=== PATIENT | female | born 1930 | race Caucasian/White ===

== ENCOUNTER 2016-12-05 14:37 | Emergency (ER) | payer MEDICARE, BC ==
[2016-12-05 16:39] VITALS: BP 153/76
[2016-12-05] MEDS ORDERED: Sodium Chloride 0.9% 1,000 ML IV SCH (18:45)
--- NOTE | 2016-12-05 18:46 | EDM.PDOC ---
[id number]: SHORT OF BREATH,WEAKNESS Time Seen by Provider: 12/05/16 15:55 Source of Information: Reports: Patient, Family History Limitations: Reports: No Limitations - History of Present Illness INITIAL COMMENTS - FREE TEXT/NARRATIVE: pt is here fatiqued and feeling more sob with exercise intolerance. She has a history of arthritis and she has a history of frequent UTIs. Onset: Gradual Duration: Day(s): Associated Symptoms: Reports: Malaise, Weakness, Other ( poor exercise tolerance. ) - Related Data Allergies Allergy/AdvReac Type Severity Reaction Status Date / Time No Known Allergies Allergy Verified 12/05/16 16:10 Home Meds: Home Meds Acetaminophen [Tylenol] 650 mg PO Q8H 12/05/16 [History] Aspirin [Halfprin] 81 mg PO DAILY 12/05/16 [History] Calcium Carbonate/Vitamin D3 [Caltrate-600 with Vit D Tab] 1 each PO DAILY 12/05 [History] Cyanocobalamin (Vitamin B-12) [Vitamin B-12] 1,000 mcg PO DAILY 12/05/16 [ History] Darifenacin [Enablex] 15 mg PO DAILY 12/05/16 [History] Donepezil HCl [Aricept] 10 mg PO BEDTIME 12/05/16 [History] Escitalopram [Lexapro] 10 mg PO DAILY 12/05/16 [History] Folic Acid/Mv,Fe,Other Min [One Daily Complete] 1 each PO DAILY 12/05/16 [ History] Ibuprofen [Motrin] 400 mg PO BEDTIME 12/05/16 [History] Memantine HCl [Namenda] 5 mg PO BID 12/05/16 [History] [place]-3/DHA/Epa/Fish Oil [Fish Oil 1,000 mg Softgel] 1,000 mg PO DAILY 12/05/16 [History] Omeprazole Magnesium [Prilosec Otc] 20 mg PO DAILY 12/05/16 [History] Psyllium Husk [Metamucil] 0.8 gm PO BEDTIME 12/05/16 [History] atorvaSTATin [Lipitor] 5 mg PO BEDTIME 12/05/16 [History] metFORMIN [Glucophage] 500 mg PO DAILY 12/05/16 [History] Past Medical History HEENT History: Reports: Hard of Hearing, Impaired Vision Gastrointestinal History: Reports: GERD Genitourinary History: Reports: Urinary Incontinence, UTI, Recurrent 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: Musculoskeletal History: Reports: Fracture, Other (See Below) Other Musculoskeletal History: 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 Neurological History: Reports: Alzheimers Disease Psychiatric History: Reports: Other (See Below) Other Psychiatric History: lexapro for sleep disorder Endocrine/Metabolic History: Reports: Diabetes, Type II, Osteoporosis - Past Surgical History GI Surgical History: Reports: Appendectomy Female Surgical History: Reports: Hysterectomy Musculoskeletal Surgical History: Reports: Knee Replacement, Other (See Below) Other Musculoskeletal Surgeries/Procedures:: bilateral total knee replacement, left femur mingo Social & Family History - Tobacco Use Smoking Status *Q: Never Smoker - Caffeine Use Caffeine Use: Reports: None - Recreational Drug Use Recreational Drug Use: No ED ROS GENERAL - Review of Systems Review Of Systems: See Below Constitutional: Reports: Chills, Malaise HEENT: Reports: No Symptoms Respiratory: Reports: No Symptoms Cardiovascular: Reports: No Symptoms Endocrine: Reports: No Symptoms GI/Abdominal: Reports: No Symptoms : Reports: No Symptoms, Other ( history of frequent infections. ) Musculoskeletal: Reports: No Symptoms Skin: Reports: No Symptoms ED EXAM, GENERAL - Physical Exam Exam: See Below Free Text/Narrative:: pt has mild sob and fatique. Exam Limited By: No Limitations General Appearance: Alert, Mild Distress Ears: Normal TMs Nose: Normal Inspection Throat/Mouth: Normal Inspection Head: Atraumatic Neck: Normal Inspection Respiratory/Chest: No Respiratory Distress Cardiovascular: Regular Rate, Rhythm GI/Abdominal: Soft, Non-Tender (Female) Exam: Deferred Rectal (Female) Exam: Deferred Back Exam: Normal Inspection Extremities: Normal Inspection Neurological: Alert, Oriented, Normal Cognition Psychiatric: Anxious Course - Vital Signs Last Recorded V/S: Last Vital Signs Temp 36.4 C 12/05/16 16:37 Pulse 70 12/05/16 16:38 Resp 18 12/05/16 16:38 BP 153/76 H 12/05/16 16:38 Pulse Ox 92 L 12/05/16 16:38 - Orders/Labs/Meds Orders: Active Orders 24 hr Category Date Time Status EKG Documentation Completion [RC] ASDIRECTED Care 12/05/16 16:00 Active Chest 1V Frontal [CR] Stat Exams 12/05/16 17:44 Taken CULTURE URINE [RM] Stat Lab 12/05/16 19:00 Received EKG 12 Lead [EK] Stat Ther 12/05/16 16:00 Ordered Labs: Laboratory Tests 12/05/16 12/05/16 12/05/16 Range/Units 17:55 17:55 17:55 WBC 8.5 (4.5-11.0) K/uL RBC 4.15 (3.30-5.50) M/uL Hgb 12.0 (12.0-15.0) g/dL Hct 37.6 (36.0-48.0) % MCV 91 (80-98) fL MCH 29 (27-31) pg MCHC 32 (32-36) % Plt Count 282 (150-400) K/uL Neut % (Auto) 73 H (36-66) % Lymph % (Auto) 10 L (24-44) % Rock % (Auto) 13 H (2-6) % Eos % (Auto) 3 (2-4) % Baso % (Auto) 1 (0-1) % Sodium 137 L (140-148) mmol/L Potassium 4.5 (3.6-5.2) mmol/L Chloride 102 (100-108) mmol/L Carbon Dioxide 27 (21-32) mmol/L Anion Gap 12.5 (5.0-14.0) mmol/L BUN 20 H (7-18) mg/dL Creatinine 1.5 H (0.6-1.0) mg/dL Est Cr Clr Drug Dosing 21.07 mL/min Estimated GFR (MDRD) 33 L (>60) Glucose 200 H (74-106) mg/dL Calcium 9.1 (8.5-10.1) mg/dL Total Bilirubin 0.2 (0.2-1.0) mg/dL AST 21 (15-37) U/L ALT 23 (12-78) U/L Alkaline Phosphatase 76 (46-116) U/L Troponin I < 0.017 (0.000-0.056) ng/mL C-Reactive Protein (0.0-0.3) mg/dL Total Protein 8.0 (6.4-8.2) g/dL Albumin 3.0 L (3.4-5.0) g/dL Globulin 5.0 H (2.3-3.5) g/dL Albumin/Globulin Ratio 0.6 L (1.2-2.2) Urine Color Urine Appearance Urine pH (4.5-8.0) Ur Specific [place] (1.008-1.030) Urine Protein (NEGATIVE) mg/dL Urine Glucose (UA) (NEGATIVE) mg/dL Urine Ketones (NEGATIVE) mg/dL Urine Occult Blood (NEGATIVE) Urine Nitrite (NEGATIVE) Urine Bilirubin (NEGATIVE) Urine Urobilinogen (NORMAL) mg/dL Ur Leukocyte Esterase (NEGATIVE) Urine RBC (0-5) Urine WBC (0-5) Ur Epithelial Cells Amorphous Sediment Urine Bacteria Urine Mucus 12/05/16 12/05/16 Range/Units 18:05 18:09 WBC (4.5-11.0) K/uL RBC (3.30-5.50) M/uL Hgb (12.0-15.0) g/dL Hct (36.0-48.0) % MCV (80-98) fL MCH (27-31) pg MCHC (32-36) % Plt Count (150-400) K/uL Neut % (Auto) (36-66) % Lymph % (Auto) (24-44) % Rock % (Auto) (2-6) % Eos % (Auto) (2-4) % Baso % (Auto) (0-1) % Sodium (140-148) mmol/L Potassium (3.6-5.2) mmol/L Chloride (100-108) mmol/L Carbon Dioxide (21-32) mmol/L Anion Gap (5.0-14.0) mmol/L BUN (7-18) mg/dL Creatinine (0.6-1.0) mg/dL Est Cr Clr Drug Dosing mL/min Estimated GFR (MDRD) (>60) Glucose (74-106) mg/dL Calcium (8.5-10.1) mg/dL Total Bilirubin (0.2-1.0) mg/dL AST (15-37) U/L ALT (12-78) U/L Alkaline Phosphatase (46-116) U/L Troponin I (0.000-0.056) ng/mL C-Reactive Protein 7.45 H (0.0-0.3) mg/dL Total Protein (6.4-8.2) g/dL Albumin (3.4-5.0) g/dL Globulin (2.3-3.5) g/dL Albumin/Globulin Ratio (1.2-2.2) Urine Color Yellow Urine Appearance Cloudy Urine pH 6.0 (4.5-8.0) Ur Specific [place] 1.005 L (1.008-1.030) Urine Protein Negative (NEGATIVE) mg/dL Urine Glucose (UA) 50 H (NEGATIVE) mg/dL Urine Ketones Negative (NEGATIVE) mg/dL Urine Occult Blood Moderate (NEGATIVE) Urine Nitrite Negative (NEGATIVE) Urine Bilirubin Negative (NEGATIVE) Urine Urobilinogen Normal (NORMAL) mg/dL Ur Leukocyte Esterase Moderate (NEGATIVE) Urine RBC 5-10 H (0-5) Urine WBC 10-20 H (0-5) Ur Epithelial Cells Moderate Amorphous Sediment Few Urine Bacteria Moderate Urine Mucus Few Meds: Medications Discontinued Medications Generic Name Dose Route Start Last Admin Trade Name Freq PRN Reason Stop Dose Admin Sodium Chloride 1,000 mls @ 400 mls/hr 12/05/16 18:45 12/05/16 19:36 Normal Saline IV 400 mls/hr ASDIRECTED KIANA Administration Levofloxacin/Dextrose 500 mg/ 100 mls @ 100 mls/hr 12/05/16 18:50 12/05/16 19 :41 Premix IV 12/05/16 19:49 100 mls/hr ONETIME ONE Administration - Re-Assessments/Exams Free Text/Narrative Re-Assessment/Exam: 12/05/16 18:48 chest xray does not cathie acute. Her wbc is not elevated. Her b 12/05/16 18:49 creatnine is 1.5. Ekg looks normal. 12/05/16 18:52 pt was found to have a urine which looks quite infected. Departure - Departure Time of Disposition: 16:40 Disposition: Home, Self-Care 01 Condition: Fair Clinical Impression: UTI (urinary tract infection), Rheumatoid arthritis - Discharge Information Instructions: Urinary Tract Infection, Adult, [id number] Referrals: PCP,None [Primary Care Provider] - Forms: ED Department Discharge Care Plan Goals: push fluids . levoquin 500mg daily for 10 days. See primary care physian for followup. - My Orders Last 24 Hours: My Active Orders 12/05/16 16:00 EKG Documentation Completion [RC] ASDIRECTED EKG 12 Lead [EK] Stat 08/03/17 17:44 Chest 1V Frontal [CR] Stat 12/05/16 19:00 CULTURE URINE [RM] Stat - Assessment/Plan Last 24 Hours: My Active Orders 12/05/16 16:00 EKG Documentation Completion [RC] ASDIRECTED EKG 12 Lead [EK] Stat 12/05/16 17:44 Chest 1V Frontal [CR] Stat 12/05/16 19:00 CULTURE URINE [RM] Stat
[2016-12-05] MEDS ORDERED: Levofloxacin/Dextrose 5%-Water 500 MG in Premix Bag 1 BAG IV ONE (18:50)
--- NOTE | 2016-12-06 09:15 | CR ---
Heart size upper limits of normal. Elevated right hemidiaphragm. No focal consolidation. Pulmonary v asculature upper limits of normal. Difficult to exclude a pulmonary nodule right upper lobe at 5 mm. Compared to priors available otherwise recommend nonemergent noncontrast chest CT follow-up.
== END 2016-12-05 21:07 | disposition home or self-care (01) ==
LOC: JP.ED 14:37
DX: N39.0 Urinary tract infection, site not specified (principal); M06.9 Rheumatoid arthritis, unspecified; K21.9 Gastro-esophageal reflux disease without esophagitis; G30.0 Alzheimer's disease with early onset; E11.9 Type 2 diabetes mellitus without complications; M81.0 Age-related osteoporosis without current pathological fracture; Z87.440 Personal history of urinary (tract) infections; Z98.890 Other specified postprocedural states; Z96.651 Presence of right artificial knee joint; Z96.652 Presence of left artificial knee joint; Z90.710 Acquired absence of both cervix and uterus; Z79.84 Long term (current) use of oral hypoglycemic drugs; Z79.899 Other long term (current) drug therapy; Z79.82 Long term (current) use of aspirin
CPT/HCPCS: 36415; 71010; 80053; 81001; 84484; 85025; 86140; 87086; 87088; 87186; 93005; 96365; 99285; J1956; J7040; 93010; 99284

== ENCOUNTER 2017-01-24 18:28 | Emergency (ER) | payer MEDICARE, BC ==
[2017-01-24] MEDS ORDERED: Sodium Chloride 0.9% 10 ML Syringe FLUSH PRN ×2 (18:34)
--- NOTE | 2017-01-24 18:47 | EDM.PDOC ---
ED HPI GENERAL MEDICAL PROBLEM - General Stated Complaint: MEDICAL Time Seen by Provider: 01/24/17 18:32 Source of Information: Reports: Patient, EMS, RN Notes Reviewed History Limitations: Reports: No Limitations - History of Present Illness INITIAL COMMENTS - FREE TEXT/NARRATIVE: 86-year-old female presents emergency department today via EMS services, stroke alert was called in the field, patient was a little confused and disorientated so difficult to obtain history from her, the majority this is taken from EMS and family members, she normally uses a walker at home was ambulating across the floor sudden loss of balance and fell backward hit head and shoulders region. EMS services were called upon arrival smutter felt that she had a left -sided facial droop was confused having difficulty answering questions speech was slurred as well. She was initially taken to CAT scan upon arrival for head CT during the initial assessment she could speak in full sentences without difficulty orientated to person, complaining of shoulder pain bilaterally is able to smile without asymmetry with equal hand grasp bilaterally. Family states after she fell there was no loss of consciousness and she was able speak in full sentences without difficulty no facial droop was noted. The deficits appreciated by the smutter were in route to hospital but resolved upon arrival. Right Shoulder Pain Score (Numeric/FACES): 3 - Related Data Allergies Allergy/AdvReac Type Severity Reaction Status Date / Time No Known Allergies Allergy Verified 01/24/17 19:08 Home Meds: Home Meds Acetaminophen [Tylenol] 650 mg PO Q8H 12/05/16 [History] Aspirin [Halfprin] 81 mg PO DAILY 12/05/16 [History] Darifenacin [Enablex] 15 mg PO DAILY 12/05/16 [History] Donepezil HCl [Aricept] 10 mg PO BEDTIME 12/05/16 [History] Escitalopram [Lexapro] 10 mg PO DAILY 12/05/16 [History] Omeprazole Magnesium [Prilosec Otc] 20 mg PO DAILY 12/05/16 [History] Psyllium Husk [Metamucil] 0.8 gm PO BEDTIME 12/05/16 [History] atorvaSTATin [Lipitor] 5 mg PO BEDTIME 12/05/16 [History] glipiZIDE [Glucotrol XL] 0.5 tab PO DAILY 01/24/17 [History] Past Medical History HEENT History: Reports: Hard of Hearing, Impaired Vision Gastrointestinal History: Reports: GERD Genitourinary History: Reports: Urinary Incontinence, UTI, Recurrent 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: Musculoskeletal History: Reports: Fracture, Other (See Below) Other Musculoskeletal History: 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 Neurological History: Reports: Alzheimers Disease Psychiatric History: Reports: Other (See Below) Other Psychiatric History: lexapro for sleep disorder Endocrine/Metabolic History: Reports: Diabetes, Type II, Osteoporosis - Past Surgical History GI Surgical History: Reports: Appendectomy Female Surgical History: Reports: Hysterectomy Musculoskeletal Surgical History: Reports: Knee Replacement, Other (See Below) Other Musculoskeletal Surgeries/Procedures:: bilateral total knee replacement, left femur mingo Social & Family History - Tobacco Use Smoking Status *Q: Never Smoker - Caffeine Use Caffeine Use: Reports: None - Recreational Drug Use Recreational Drug Use: No ED ROS GENERAL - Review of Systems Review Of Systems: Unable To Obtain (Secondary to confused state) ED EXAM, NEURO - Physical Exam Exam: See Below Text/Narrative:: Cranial nerves II through XII grossly intact, power is 5 out 5 in upper and lower extremities, patellar reflex, biceps reflex +2 can do finger to nose without difficulty no dysdiadochokinesis no difficulty with rapid alternating movements no focal neurologic deficit Exam Limited By: No Limitations General Appearance: Alert, No Apparent Distress Eye Exam: Bilateral Eye: Normal Fundi Ears: Normal External Exam Nose: Normal Inspection Throat/Mouth: Normal Inspection, Normal Lips, Normal Teeth, Normal Gums, Normal Oropharynx, Normal Voice, No Airway Compromise Head Exam: Atraumatic, Normocephalic Neck: Normal Inspection, Supple, Non-Tender, Full Range of Motion Respiratory/Chest: No Respiratory Distress, Lungs Clear, Normal Breath Sounds, No Accessory Muscle Use Cardiovascular: Regular Rate, Rhythm, No Murmur GI/Abdominal: Soft, Non-Tender Neurological: Alert, CN II-XII Intact, No Motor/Sensory Deficits Back Exam: Normal Inspection, Full Range of Motion. No: CVA Tenderness (R), CVA Tenderness (L) Extremities: Normal Inspection, Non-Tender, No Pedal Edema Skin Exam: Warm, Dry Course - Vital Signs Last Recorded V/S: Last Vital Signs Temp 98.5 F 01/24/17 19:06 Pulse 80 01/24/17 20:11 Resp 16 01/24/17 20:11 BP 182/65 H 01/24/17 20:11 Pulse Ox 92 L 01/24/17 20:11 - Orders/Labs/Meds Orders: Active Orders 24 hr Category Date Time Status EKG Documentation Completion [RC] ASDIRECTED Care 01/24/17 18:35 Active Peripheral IV Care [RC] . DIRECTED Care 01/24/17 18:35 Active Head wo Cont [CT] Stat Exams 01/24/17 18:33 Taken Shoulder Comp Bi [CR] Stat Exams 01/24/17 18:42 Taken CULTURE URINE [RM] Urgent Lab 01/24/17 20:28 Uncollected Sodium Chloride 0.9% [Saline Flush] Med 01/24/17 18:34 Active 10 ml FLUSH ASDIRECTED PRN Sodium Chloride 0.9% [Saline Flush] Med 01/24/17 18:34 Active 10 ml FLUSH ASDIRECTED PRN Peripheral IV Insertion Adult [OM.PC] Urgent Oth 01/24/17 18:34 Ordered EKG 12 Lead [EK] Urgent Ther 01/24/17 18:34 Ordered Medication Orders Sodium Chloride (Saline Flush) 10 ml FLUSH ASDIRECTED PRN PRN Reason: Keep Vein Open Sodium Chloride (Saline Flush) 10 ml FLUSH ASDIRECTED PRN PRN Reason: Keep Vein Open Labs: Laboratory Tests 01/24/17 01/24/17 01/24/17 Range/Units 18:50 18:50 18:50 WBC 7.4 (4.5-11.0) K/uL RBC 4.14 (3.30-5.50) M/uL Hgb 12.2 (12.0-15.0) g/dL Hct 38.6 (36.0-48.0) % MCV 93 (80-98) fL MCH 30 (27-31) pg MCHC 32 (32-36) % Plt Count 232 (150-400) K/uL Neut % (Auto) 74 H (36-66) % Lymph % (Auto) 12 L (24-44) % [place] % (Auto) 11 H (2-6) % Eos % (Auto) 3 (2-4) % Baso % (Auto) 0 (0-1) % Sodium 138 L (140-148) mmol/L Potassium 3.5 L (3.6-5.2) mmol/L Chloride 103 (100-108) mmol/L Carbon Dioxide 24 (21-32) mmol/L Anion Gap 14.5 H (5.0-14.0) mmol/L BUN 21 H (7-18) mg/dL Creatinine 1.8 H (0.6-1.0) mg/dL Est Cr Clr Drug Dosing 18.40 mL/min Estimated GFR (MDRD) 27 L (>60) Glucose 133 H (74-106) mg/dL Calcium 8.7 (8.5-10.1) mg/dL Total Bilirubin 0.2 (0.2-1.0) mg/dL AST 25 (15-37) U/L ALT 25 (12-78) U/L Alkaline Phosphatase 71 (46-116) U/L Troponin I < 0.017 (0.000-0.056) ng/mL Total Protein 7.8 (6.4-8.2) g/dL Albumin 3.3 L (3.4-5.0) g/dL Globulin 4.5 H (2.3-3.5) g/dL Albumin/Globulin Ratio 0.7 L (1.2-2.2) Urine Color Urine Appearance Urine pH (4.5-8.0) Ur Specific [place] (1.008-1.030) Urine Protein (NEGATIVE) mg/dL Urine Glucose (UA) (NEGATIVE) mg/dL Urine Ketones (NEGATIVE) mg/dL Urine Occult Blood (NEGATIVE) Urine Nitrite (NEGATIVE) Urine Bilirubin (NEGATIVE) Urine Urobilinogen (NORMAL) mg/dL Ur Leukocyte Esterase (NEGATIVE) Urine RBC (0-5) Urine WBC (0-5) Ur Epithelial Cells Amorphous Sediment Urine Bacteria Urine Mucus Ethyl Alcohol < 3 mg/dL 01/24/17 Range/Units 20:11 WBC (4.5-11.0) K/uL RBC (3.30-5.50) M/uL Hgb (12.0-15.0) g/dL Hct (36.0-48.0) % MCV (80-98) fL MCH (27-31) pg MCHC (32-36) % Plt Count (150-400) K/uL Neut % (Auto) (36-66) % Lymph % (Auto) (24-44) % [place] % (Auto) (2-6) % Eos % (Auto) (2-4) % Baso % (Auto) (0-1) % Sodium (140-148) mmol/L Potassium (3.6-5.2) mmol/L Chloride (100-108) mmol/L Carbon Dioxide (21-32) mmol/L Anion Gap (5.0-14.0) mmol/L BUN (7-18) mg/dL Creatinine (0.6-1.0) mg/dL Est Cr Clr Drug Dosing mL/min Estimated GFR (MDRD) (>60) Glucose (74-106) mg/dL Calcium (8.5-10.1) mg/dL Total Bilirubin (0.2-1.0) mg/dL AST (15-37) U/L ALT (12-78) U/L Alkaline Phosphatase (46-116) U/L Troponin I (0.000-0.056) ng/mL Total Protein (6.4-8.2) g/dL Albumin (3.4-5.0) g/dL Globulin (2.3-3.5) g/dL Albumin/Globulin Ratio (1.2-2.2) Urine Color Yellow Urine Appearance Cloudy Urine pH 6.0 (4.5-8.0) Ur Specific [place] 1.010 (1.008-1.030) Urine Protein Negative (NEGATIVE) mg/dL Urine Glucose (UA) Normal (NEGATIVE) mg/dL Urine Ketones Negative (NEGATIVE) mg/dL Urine Occult Blood Trace (NEGATIVE) Urine Nitrite Negative (NEGATIVE) Urine Bilirubin Negative (NEGATIVE) Urine Urobilinogen Normal (NORMAL) mg/dL Ur Leukocyte Esterase Large (NEGATIVE) Urine RBC 0-5 (0-5) Urine WBC 20-30 H (0-5) Ur Epithelial Cells Few Amorphous Sediment Rare Urine Bacteria Few Urine Mucus Few Ethyl Alcohol mg/dL Meds: Medications Generic Name Dose Route Start Last Admin Trade Name Freq PRN Reason Stop Dose Admin Sodium Chloride 10 ml 01/24/17 18:34 Saline Flush FLUSH ASDIRECTED PRN Keep Vein Open Sodium Chloride 10 ml 01/24/17 18:34 Saline Flush FLUSH ASDIRECTED PRN Keep Vein Open Departure - Departure Time of Disposition: 20:38 Disposition: Home, Self-Care 01 Condition: Fair Clinical Impression: Syncope and collapse - Discharge Information Referrals: PCP,None [Primary Care Provider] - Additional Instructions: Resume your normal medications, please follow-up with your primary care provider upon return home - My Orders Last 24 Hours: My Active Orders 01/24/17 18:33 Head wo Cont [CT] Stat 01/24/17 18:34 Sodium Chloride 0.9% [Saline Flush] 10 ml FLUSH ASDIRECTED PRN Sodium Chloride 0.9% [Saline Flush] 10 ml FLUSH ASDIRECTED PRN Peripheral IV Insertion Adult [OM.PC] Urgent EKG 12 Lead [EK] Urgent 01/24/17 18:35 EKG Documentation Completion [RC] ASDIRECTED Peripheral IV Care [RC] . DIRECTED 01/24/17 18:42 Shoulder Comp Bi [CR] Stat 01/24/17 20:28 CULTURE URINE [RM] Urgent - Assessment/Plan Last 24 Hours: My Active Orders 01/24/17 18:33 Head wo Cont [CT] Stat 01/24/17 18:34 Sodium Chloride 0.9% [Saline Flush] 10 ml FLUSH ASDIRECTED PRN Sodium Chloride 0.9% [Saline Flush] 10 ml FLUSH ASDIRECTED PRN Peripheral IV Insertion Adult [OM.PC] Urgent EKG 12 Lead [EK] Urgent 01/24/17 18:35 EKG Documentation Completion [RC] ASDIRECTED Peripheral IV Care [RC] . 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 Etiology = unclear etiology Manifestations = none Location of injury = Home Lab values = sodium low at 138 consistent hyponatremia potassium low at 3.5 consistent hypokalemia creatinine elevated 1.8 consistent with chronic renal failure stage G for troponin was negative albumin low at 3.3 consistent hypoalbuminemia urinalysis reveals 20-30 WBCs consistent pyuria however few bacteria noted cultures pending EtOH is negative EKG demonstrates sinus rhythm no axis deviation no T wave inversions no atrial enlargement no ventricular enlargement no ST elevations or depressions PACs noted, CT scan of the head reveals diffuse atrophy, periventricular and subcortical white matter hypodensity consistent with small vessel ischemic change, 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 This note was dictated using [employer] voice recognition software please call with any questions.
[2017-01-24 20:12] VITALS: BP 182/65
--- NOTE | 2017-01-27 09:35 | CR ---
Shoulder Comp Bi INDICATION: fall, pain COMPARISON: No prior shoulder x-rays. Chest x-ray 12/05/2016 is available. FINDINGS: 6 views of both shoulders. Right shoulder: Band of sclerosis through the neck of the proximal humerus is again seen. A subacute impacted fracture not excluded. Overall, no change. If needed, CT right shoulder could be performed. Left shoulder: Old healed fracture left proximal humerus. Nothing acute seen. Discussed with Dr. Hernandez in the ED on 01/27/2017 at 0930 hours.
--- NOTE | 2017-01-27 11:24 | LETTER ---
01/27/2017 Dede Gleason [address] [place] [address] RE: DEDE GLEASON : 1930 Dear Dede: You recently were at the emergency room, and a shoulder x-ray was obtained because of the pain in the shoulder. It was read as no fracture. The radiologist has looked at this humeral area and feels that there could be a little hairline fracture sitting in the humeral neck. At this time, it is the recommendation of the radiologist that consideration be given to do a CAT scan of the shoulder. If you have questions regarding this feel, free to contact us. Sincerely, /[id number]
== END 2017-01-24 21:15 | disposition home or self-care (01) ==
LOC: JP.ED 18:28
DX: R55 Syncope and collapse (principal); E11.9 Type 2 diabetes mellitus without complications; Z79.82 Long term (current) use of aspirin; Z79.899 Other long term (current) drug therapy; Z87.440 Personal history of urinary (tract) infections
CPT/HCPCS: 36415; 70450; 73030; 80053; 81001; 84484; 85025; 87086; 87088; 87186; 93005; 93010; 99285; G0480; 99284

== ENCOUNTER 2017-12-19 12:24 | Emergency (ER) | payer MEDICARE, BC ==
[2017-12-19] MEDS ORDERED: Aspirin 81 MG Tab.Chew PO ONE (12:29)
--- NOTE | 2017-12-19 12:32 | EDM.PDOC ---
ED HPI GENERAL MEDICAL PROBLEM - General Chief Complaint: Chest Pain Stated Complaint: CHEST PAIN Time Seen by Provider: 12/19/17 12:28 Source of Information: Reports: Patient History Limitations: Reports: No Limitations - History of Present Illness INITIAL COMMENTS - FREE TEXT/NARRATIVE: 87-year-old female presents emergency department day complaint of chest pain, she states the chest pain started one hour prior she feels short of breath with a deep breath however no nausea vomiting no diaphoresis she has no heart history. - Related Data Allergies Allergy/AdvReac Type Severity Reaction Status Date / Time No Known Allergies Allergy Verified 12/19/17 12:40 Home Meds: Home Meds Acetaminophen [Tylenol] 650 mg PO Q8H 12/05/16 [History] Aspirin [Halfprin] 81 mg PO DAILY 12/05/16 [History] Darifenacin [Enablex] 15 mg PO DAILY 12/05/16 [History] Donepezil HCl [Aricept] 10 mg PO BEDTIME 12/05/16 [History] Escitalopram [Lexapro] 10 mg PO DAILY 12/05/16 [History] Omeprazole Magnesium [Prilosec Otc] 20 mg PO DAILY 12/05/16 [History] Psyllium Husk [Metamucil] 0.8 gm PO BEDTIME 12/05/16 [History] atorvaSTATin [Lipitor] 5 mg PO BEDTIME 12/05/16 [History] glipiZIDE [Glucotrol XL] 0.5 tab PO DAILY 01/24/17 [History] Metoprolol Tartrate [Lopressor] 12.5 mg PO Q12HR #30 tab 12/19/17 [Rx] Past Medical History HEENT History: Reports: Hard of Hearing, Impaired Vision Gastrointestinal History: Reports: GERD Genitourinary History: Reports: Urinary Incontinence, UTI, Recurrent Other Genitourinary History: 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-closely monitored [employer]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: Musculoskeletal History: Reports: Fracture, Other (See Below) Other Musculoskeletal History: 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 Neurological History: Reports: Alzheimers Disease Psychiatric History: Reports: Other (See Below) Other Psychiatric History: lexapro for sleep disorder Endocrine/Metabolic History: Reports: Diabetes, Type II, Osteoporosis Hematologic History: Reports: Iron Deficiency - Past Surgical History GI Surgical History: Reports: Appendectomy Female Surgical History: Reports: Hysterectomy Musculoskeletal Surgical History: Reports: Knee Replacement, Other (See Below) Other Musculoskeletal Surgeries/Procedures:: bilateral total knee replacement, left femur mingo Social & Family History - Caffeine Use Caffeine Use: Reports: None ED ROS GENERAL - Review of Systems Review Of Systems: See Below Constitutional: Reports: No Symptoms. Denies: Diaphoresis HEENT: Reports: No Symptoms Respiratory: Denies: Shortness of Breath Cardiovascular: Reports: Chest Pain GI/Abdominal: Denies: Nausea, Vomiting Musculoskeletal: Reports: No Symptoms ED EXAM, GENERAL - Physical Exam Exam: See Below Exam Limited By: No Limitations General Appearance: Alert, WD/WN, No Apparent Distress Head: Atraumatic, Normocephalic Neck: Normal Inspection, Supple, Non-Tender, Full Range of Motion Respiratory/Chest: No Respiratory Distress, Lungs Clear, Normal Breath Sounds, No Accessory Muscle Use Cardiovascular: No Murmur, Tachycardia GI/Abdominal: Soft, Non-Tender Course - Vital Signs Last Recorded V/S: Last Vital Signs Temp 98.2 F 12/19/17 12:30 Pulse 94 12/19/17 14:01 Resp 12 12/19/17 14:01 BP 130/71 12/19/17 14:01 Pulse Ox 94 L 12/19/17 14:01 - Orders/Labs/Meds Orders: Active Orders 24 hr Category Date Time Status Cardiac Monitoring [RC] .As Directed Care 12/19/17 12:29 Active EKG Documentation Completion [RC] ASDIRECTED Care 12/19/17 12:30 Active EKG Documentation Completion [RC] ASDIRECTED Care 12/19/17 13:43 Active Peripheral IV Care [RC] . DIRECTED Care 12/19/17 12:34 Active Chest 1V Frontal [CR] Stat Exams 12/19/17 12:30 Taken Nitroglycerin [Nitrostat] Med 12/19/17 13:13 Active 0.4 mg SL Q5M PRN Sodium Chloride 0.9% [Normal Saline] 1,000 ml Med 12/19/17 12:45 Active IV ASDIRECTED Sodium Chloride 0.9% [Saline Flush] Med 12/19/17 12:34 Active 10 ml FLUSH ASDIRECTED PRN Peripheral IV Insertion Adult [OM.PC] Urgent Oth 12/19/17 12:34 Ordered EKG 12 Lead [EK] Stat Ther 12/19/17 12:30 Ordered EKG 12 Lead [EK] Stat Ther 12/19/17 13:43 Ordered Medication Orders Sodium Chloride (Normal Saline) 1,000 mls @ 125 mls/hr IV ASDIRECTED KIANA Last Admin: 12/19/17 13:11 Dose: 125 mls/hr Nitroglycerin (Nitrostat) 0.4 mg SL Q5M PRN PRN Reason: Chest Pain Sodium Chloride (Saline Flush) 10 ml FLUSH ASDIRECTED PRN PRN Reason: Keep Vein Open Last Admin: 12/19/17 13:12 Dose: 10 ml Labs: Laboratory Tests 12/19/17 12/19/17 Range/Units 12:45 12:45 WBC 6.1 (4.5-11.0) K/uL RBC 4.40 (3.30-5.50) M/uL Hgb 13.2 (12.0-15.0) g/dL Hct 42.1 (36.0-48.0) % MCV 96 (80-98) fL MCH 30 (27-31) pg MCHC 31 L (32-36) % Plt Count 214 (150-400) K/uL Neut % (Auto) 67 H (36-66) % Lymph % (Auto) 17 L (24-44) % [place] % (Auto) 12 H (2-6) % Eos % (Auto) 3 (2-4) % Baso % (Auto) 0 (0-1) % Sodium 137 L (140-148) mmol/L Potassium 4.1 (3.6-5.2) mmol/L Chloride 101 (100-108) mmol/L Carbon Dioxide 25 (21-32) mmol/L Anion Gap 15.1 H (5.0-14.0) mmol/L BUN 21 H (7-18) mg/dL Creatinine 1.3 H (0.6-1.0) mg/dL Est Cr Clr Drug Dosing 25.02 mL/min Estimated GFR (MDRD) 39 L (>60) Glucose 275 H (74-106) mg/dL Calcium 9.0 (8.5-10.1) mg/dL Total Bilirubin 0.3 (0.2-1.0) mg/dL AST 32 (15-37) U/L ALT 40 (12-78) U/L Alkaline Phosphatase 87 (46-116) U/L CK-MB (CK-2) 3.1 (0-3.6) mg/mL Troponin I < 0.017 (0.000-0.056) ng/mL Total Protein 7.5 (6.4-8.2) g/dL Albumin 3.4 (3.4-5.0) g/dL Globulin 4.1 H (2.3-3.5) g/dL Albumin/Globulin Ratio 0.8 L (1.2-2.2) Meds: Medications Generic Name Dose Route Start Last Admin Trade Name Freq PRN Reason Stop Dose Admin Sodium Chloride 1,000 mls @ 125 mls/hr 12/19/17 12:45 12/19/17 13:11 Normal Saline IV 125 mls/hr ASDIRECTED KIANA Administration Nitroglycerin 0.4 mg 12/19/17 13:13 Nitrostat SL Q5M PRN Chest Pain Sodium Chloride 10 ml 12/19/17 12:34 12/19/17 13:12 Saline Flush FLUSH 10 ml ASDIRECTED PRN Administration Keep Vein Open Discontinued Medications Generic Name Dose Route Start Last Admin Trade Name Freq PRN Reason Stop Dose Admin Aspirin 324 mg 12/19/17 12:29 12/19/17 13:06 Aspirin PO 12/19/17 12:30 324 mg ONETIME ONE Administration Diltiazem HCl 20 mg 12/19/17 12:34 12/19/17 13:07 Diltiazem IVPUSH 12/19/17 12:35 20 mg ONETIME ONE Administration Departure - Departure Time of Disposition: 14:23 Disposition: Home, Self-Care 01 Condition: Fair Clinical Impression: Atrial fibrillation with rapid ventricular response Prescriptions: Metoprolol Tartrate [Lopressor] 12.5 mg PO Q12HR #30 tab Referrals: PCP,None [Primary Care Provider] - Forms: ED Department Discharge Additional Instructions: Start metoprolol half tablet today and then every 12 hours please follow-up with your primary care provider in your [employer] upon return home, call return to the emergency department worsening of symptoms - My Orders Last 24 Hours: My Active Orders 12/19/17 12:29 Cardiac Monitoring [RC] .As Directed 12/19/17 12:30 EKG Documentation Completion [RC] ASDIRECTED Chest 1V Frontal [CR] Stat EKG 12 Lead [EK] Stat 12/19/17 12:34 Peripheral IV Care [RC] . DIRECTED Sodium Chloride 0.9% [Saline Flush] 10 ml FLUSH ASDIRECTED PRN Peripheral IV Insertion Adult [OM.PC] Urgent 12/19/17 12:45 Sodium Chloride 0.9% [Normal Saline] 1,000 ml IV ASDIRECTED 12/19/17 13:13 Nitroglycerin [Nitrostat] 0.4 mg SL Q5M PRN 12/19/17 13:43 EKG Documentation Completion [RC] ASDIRECTED EKG 12 Lead [EK] Stat - Assessment/Plan Last 24 Hours: My Active Orders 12/19/17 12:29 Cardiac Monitoring [RC] .As Directed 12/19/17 12:30 EKG Documentation Completion [RC] ASDIRECTED Chest 1V Frontal [CR] Stat EKG 12 Lead [EK] Stat 12/19/17 12:34 Peripheral IV Care [RC] . DIRECTED Sodium Chloride 0.9% [Saline Flush] 10 ml FLUSH ASDIRECTED PRN Peripheral IV Insertion Adult [OM.PC] Urgent 12/19/17 12:45 Sodium Chloride 0.9% [Normal Saline] 1,000 ml IV ASDIRECTED 12/19/17 13:13 Nitroglycerin [Nitrostat] 0.4 mg SL Q5M PRN 12/19/17 13:43 EKG Documentation Completion [RC] ASDIRECTED EKG 12 Lead [EK] Stat Plan: Assessment Acuity = acute Site and laterality = atrial fibrillation with rapid ventricular response complicated patient with known history of chronic renal disease Etiology = unclear etiology Manifestations = none symptoms resolved status post chemical conversion Location of injury = Home Lab values = CBC unremarkable creatinine elevated at 1.3 consistent with chronic renal failure stage G IIIB, troponin was negative initial EKG demonstrates a defibrillation around [address] depression probably related to rate, postconversion EKG demonstrates a sinus rhythm [address] elevations or depressions, chest x-ray I did review films myself I cannot appreciate any acute process, the official read from radiology is pending Plan She was given Cardizem 20 mg which converted her to sinus rhythm is remained in this rhythm for at least a couple of hours I discussed with her rate control and anticoagulation as her chads score is between 4 puts her at risk for cerebrovascular accident, however she does have a significant fall risk and history. Therefore elected to treat her with the rate control medication metoprolol low-dose 12.5 mg by mouth twice a day hold off on any anticoagulation at this time until she can return home and follow up with her primary care provider in her [employer] for further evaluation This note was dictated using [employer] voice recognition software please call with any questions on syntax or grammar.
[2017-12-19] MEDS ORDERED: Diltiazem 25 MG/5 ML SDV IVPUSH ONE (12:34)
[2017-12-19] MEDS ORDERED: Sodium Chloride 0.9% 10 ML Syringe FLUSH PRN (12:34)
[2017-12-19] MEDS ORDERED: Sodium Chloride 0.9% 1,000 ML IV SCH (12:45)
[2017-12-19] MEDS ORDERED: Nitroglycerin 0.4 MG Tab.SL SL PRN (13:13)
[2017-12-19 14:02] VITALS: BP 130/71
--- NOTE | 2017-12-22 09:22 | CR ---
CHEST: Portable CLINICAL HISTORY:Chest pain COMPARISON:2017 FINDINGS: There is some mild chronic elevation of the right hemidiaphragm. Heart and pulmonary vascu larity appear normal. No infiltrates are seen. There is some deformity of the proximal left humerus f rom healed fracture. Previously seen right upper lung nodular density is not identified on current ex am IMPRESSION: No acute cardiopulmonary process or significant change from prior study. Previous left humeral fracture
== END 2017-12-19 14:55 | disposition home or self-care (01) ==
LOC: JP.ED 12:24
DX: I48.91 Unspecified atrial fibrillation (principal); E11.22 Type 2 diabetes mellitus with diabetic chronic 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; N18.9 Chronic 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, unspecified; Z79.82 Long term (current) use of aspirin; Z79.899 Other long term (current) drug therapy
CPT/HCPCS: 36415; 71045; 80053; 82553; 84484; 85025; 93005; 96361; 96374; 99285; A9270; J3490; J7030; J7050

== ENCOUNTER 2020-11-16 07:47 | Emergency (ER) | payer MEDICARE, BC ==
--- NOTE | 2020-11-16 08:10 | EDM.PDOC ---
ED HPI GENERAL MEDICAL PROBLEM - General Chief Complaint: Chest Pain Stated Complaint: MED[facility] Time Seen by Provider: 11/16/20 07:51 Source of Information: Reports: Patient, Family, RN Notes Reviewed History Limitations: Reports: No Limitations - History of Present Illness INITIAL COMMENTS - FREE TEXT/NARRATIVE: 89-year-old female presents emergency department day complaint of chest pain, she states the chest pain started last night went to bed awoke this morning still having chest pain she rates it 5 out of 10 did arrive by EMS provided baby aspirin did give 1 spray of nitro brought the pain down from a 5-3. She states that it feels like it is more in the center of her chest has had some nausea but she is currently being treated for urinary tract infection had some nausea with that as well. Does not feel short of breath but it hurts when she takes a deep breath no diaphoresis only cardiac history is paroxysmal atrial fibrillation a couple years ago. Middle Chest Pain Score (Numeric/FACES): 3 - Related Data Allergies Allergy/AdvReac Type Severity Reaction Status Date / Time No Known Allergies Allergy Verified 11/16/20 07:52 Home Meds: Home Meds Acetaminophen [Tylenol] 650 mg PO Q8H 12/05/16 [History] Aspirin [Halfprin] 81 mg PO DAILY 12/05/16 [History] Darifenacin [Enablex] 15 mg PO DAILY 12/05/16 [History] Donepezil HCl [Aricept] 10 mg PO BEDTIME 12/05/16 [History] Escitalopram [Lexapro] 10 mg PO DAILY 12/05/16 [History] Omeprazole Magnesium [Prilosec Otc] 20 mg PO DAILY 12/05/16 [History] Psyllium Husk [Metamucil] 0.8 gm PO BEDTIME 12/05/16 [History] atorvaSTATin [Lipitor] 5 mg PO BEDTIME 12/05/16 [History] glipiZIDE [Glucotrol XL] 0.5 tab PO DAILY 01/24/17 [History] Metoprolol Tartrate [Lopressor] 12.5 mg PO Q12HR #30 tab 12/19/17 [Rx] Past Medical History HEENT History: Reports: Hard of Hearing, Impaired Vision Cardiovascular History: Reports: Afib (Paroxysmal), Hypertension Gastrointestinal History: Reports: GERD Genitourinary History: Reports: Urinary Incontinence, UTI, Recurrent Other Genitourinary History: 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: Musculoskeletal History: Reports: Fracture, Other (See Below) Other Musculoskeletal History: 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 Neurological History: Reports: Alzheimers Disease Psychiatric History: Reports: Other (See Below) Other Psychiatric History: lexapro for sleep disorder Endocrine/Metabolic History: Reports: Diabetes, Type II, Osteoporosis Hematologic History: Reports: Iron Deficiency - Past Surgical History Head Surgeries/Procedures: Reports: None Cardiovascular Surgical History: Reports: None GI Surgical History: Reports: Appendectomy Female Surgical History: Reports: Hysterectomy Neurological Surgical History: Reports: None Musculoskeletal Surgical History: Reports: Knee Replacement, Other (See Below) Other Musculoskeletal Surgeries/Procedures:: bilateral total knee replacement, left femur mingo Dermatological Surgical History: Reports: None Social & Family History - Tobacco Use Tobacco Use Status *Q: Never Tobacco User - Caffeine Use Caffeine Use: Reports: None - Recreational Drug Use Recreational Drug Use: No ED ROS GENERAL - Review of Systems Review Of Systems: See Below Constitutional: Reports: No Symptoms HEENT: Reports: No Symptoms Respiratory: Reports: No Symptoms Cardiovascular: Reports: Chest Pain GI/Abdominal: Reports: Nausea ED EXAM, GENERAL - Physical Exam Exam: See Below Exam Limited By: No Limitations General Appearance: Alert, WD/WN, No Apparent Distress Respiratory/Chest: No Respiratory Distress, Lungs Clear, Normal Breath Sounds, No Accessory Muscle Use, Other (Tender to palpation center of the chest) Cardiovascular: Regular Rate, Rhythm, No Murmur GI/Abdominal: Soft, Non-Tender Extremities: No Pedal Edema Course - Vital Signs Last Recorded V/S: Last Vital Signs Temp 98 F 11/16/20 07:52 Pulse 80 11/16/20 08:47 Resp 16 11/16/20 09:46 BP 134/50 L 11/16/20 09:46 Pulse Ox 94 L 11/16/20 09:46 - Orders/Labs/Meds Orders: Active Orders 24 hr Category Date Time Status Cardiac Monitoring [RC] .As Directed Care 11/16/20 08:15 Active Labs: Laboratory Tests 11/16/20 11/16/20 Range/Units 08:35 08:35 WBC 10.6 (4.5-11.0) K/uL RBC 4.54 (3.30-5.50) M/uL Hgb 13.9 (12.0-15.0) g/dL Hct 44.8 (36.0-48.0) % MCV 99 H (80-98) fL MCH 31 (27-31) pg MCHC 31 L (32-36) % Plt Count 212 (150-400) K/uL Neut % (Auto) 77.9 H (36-66) % Lymph % (Auto) 10.8 L (24-44) % [place] % (Auto) 9.9 H (2-6) % Eos % (Auto) 1.2 L (2-4) % Baso % (Auto) 0.2 (0-1) % Sodium 141 (140-148) mmol/L Potassium 3.8 (3.6-5.2) mmol/L Chloride 104 (100-108) mmol/L Carbon Dioxide 24 (21-32) mmol/L Anion Gap 12.6 (5.0-14.0) mmol/L BUN 16 (7-18) mg/dL Creatinine 1.1 H (0.6-1.0) mg/dL Est Cr Clr Drug Dosing 28.50 mL/min Estimated GFR (MDRD) 47 L (>60) Glucose 148 H (74-106) mg/dL Calcium 8.7 (8.5-10.1) mg/dL Total Bilirubin 0.4 (0.2-1.0) mg/dL AST 17 (15-37) U/L ALT 15 (12-78) U/L Alkaline Phosphatase 82 (46-116) U/L Troponin I < 0.017 (0.000-0.056) ng/mL Total Protein 7.4 (6.4-8.2) g/dL Albumin 3.3 L (3.4-5.0) g/dL Globulin 4.1 H (2.3-3.5) g/dL Albumin/Globulin Ratio 0.8 L (1.2-2.2) Meds: Medications Discontinued Medications Generic Name Dose Route Start Last Admin Trade Name Freq PRN Reason Stop Dose Admin Al Hydroxide/Mg Hydroxide 15 0 ml 11/16/20 08:16 11/16/20 08:21 ml/ Lidocaine HCl 15 ml PO 11/16/20 08:17 30 ml ONETIME ONE Administration Ketorolac Tromethamine 15 mg 11/16/20 09:21 11/16/20 09:30 Ketorolac 30 Mg/Ml Sdv IVPUSH 11/16/20 09:22 15 mg ONETIME ONE Administration Departure - Departure Time of Disposition: 09:54 Disposition: Home, Self-Care 01 Condition: Fair Clinical Impression: Atypical chest pain Instructions: Nonspecific Chest Pain, Adult, [id number] Referrals: PCP,None [Primary Care Provider] - Forms: ED Department Discharge Additional Instructions: Try medication like ibuprofen or naproxen or Aleve for pain relief, please followup with your primary care provider in 3-5 days if not better, please call return to the emergency department with worsening of symptoms. Sepsis Event Note (ED) - Evaluation Sepsis Screening Result: No Definite Risk - Focused Exam Vital Signs: Vital Signs Temp Pulse Resp BP Pulse Ox 11/16/20 09:46 16 134/50 L 94 L 11/16/20 08:47 80 16 143/52 H 94 L 11/16/20 08:17 75 19 132/41 L 95 11/16/20 07:52 98 F 87 13 142/41 H 95 11/16/20 07:50 98 F 87 13 142/41 H 95 - My Orders Last 24 Hours: My Active Orders 11/16/20 08:15 Cardiac Monitoring [RC] .As Directed - Assessment/Plan Last 24 Hours: My Active Orders 11/16/20 08:15 Cardiac Monitoring [RC] .As Directed Plan: Assessment Acuity = acute Site and laterality = atypical chest pain Etiology = probably musculoskeletal from Manifestations = none Location of injury = Home Lab values = CBC CMP troponin all within normal limits EKG demonstrates a sinus rhythm this is a EKG from EMS, chest x-ray does show some vascular prominence however I am suspicious this was a poor inspiratory effort on a portable film Plan She had minimal relief from the GI cocktail provided she had good relief with resolution of pain with Toradol plan is discharged home follow-up primary care as needed use nonsteroidal anti-inflammatories for pain control This note was dictated using [employer] voice recognition software please call with any questions on syntax or grammar.
[2020-11-16] MEDS ORDERED: Alum Hydrox/Mag Hydrox/Simeth 15 ML, Lidocaine 2% 15 ML PO ONE ×2 (08:16)
[2020-11-16 08:52] VITALS: PULSE 80
[2020-11-16] MEDS ORDERED: Ketorolac 30 MG/ML SDV IVPUSH ONE (09:21)
--- NOTE | 2020-11-16 09:22 | CR ---
CHEST: Portable 11/16/2020 at 08 58 CLINICAL HISTORY:Chest pain COMPARISON:2018 FINDINGS: Heart size is normal. Pulmonary vascularity is cephalized. There is mild interstitial prominence. No effusions are seen. There is deformity of the left humerus similar to prior study. Impression: Vascular cephalization and interstitial prominence may represent some pulmonary venous hypertension and mild CHF
[2020-11-16 09:47] VITALS: BP 134/50
== END 2020-11-16 10:23 | disposition home or self-care (01) ==
LOC: JP.ED 07:47
DX: R07.89 Other chest pain (principal); K21.9 Gastro-esophageal reflux disease without esophagitis; E11.9 Type 2 diabetes mellitus without complications; Z79.82 Long term (current) use of aspirin; Z79.899 Other long term (current) drug therapy
CPT/HCPCS: 36415; 71045; 80053; 84484; 85025; 96374; 99285; A9270; J1885